=== PATIENT | female | born 1985 | race Caucasian/White ===

== ENCOUNTER → 2019-02-10 | Outpatient (CLI) | payer OTHER ==
--- NOTE | 2019-02-11 08:53 | MRI ---
MRI left knee without contrast INDICATION: Knee pain patellar dislocation date of onset not specified TECHNIQUE: Noncontrast MR imaging left knee standard protocol FINDINGS: Moderate persistent lateral patellar tracking/subluxation. Subchondral edema related to overlying chondrosis/impaction medial patella. Mild edema lateral margin lateral femoral condyle likely related to subacute lateral patellar dislocation Advanced grade 4 chondrosis throughout the lateral patellar facet with subchondral edema and cystic change. Marginal mild chondrosis lateral margin trochlea. Up to grade 4 chondrosis medial trochlea. Ill-defined grade 4 chondrosis with partial delamination medial patellar facet. Large joint effusion with synovitis/debris. No sadie rupture of the retinaculum. Extensor tendons are intact. Mild prepatellar and superficial infrapatellar bursal edema. Cruciate ligaments are intact. No discrete meniscal tear. Collateral ligaments are intact. 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
== END ==
LOC: MRI 14:00
PROVIDERS: ATTEND Orthopaedic Surgery
DX: S83.005A Unspecified dislocation of left patella, initial encounter (principal); M65.862 Other synovitis and tenosynovitis, left lower leg; M22.3X2 Other derangements of patella, left knee

== ENCOUNTER 2020-09-16 08:19 | Emergency (ER) | payer MEDICAID, OTHER ==
[2020-09-16] MEDS ORDERED: ONDANSETRON INJ 4 MG/2 ML VIAL IV ONE (08:39)
[2020-09-16] MEDS ORDERED: fentaNYL CITRATE INJ 50 MCG/ML 2 ML AMP IV ONE (08:39)
--- NOTE | 2020-09-16 08:42 | ED.PDOC ---
History of Present Illness - General Chief Complaint: Abdominal Pain Stated Complaint: L sided abd pain, L flank/back pain Time Seen by Provider: 09/16/20 08:28 - History of Present Illness Initial Comments: 35-year-old female with history of gestational hypertension presents to ED complaining of acute onset of left upper quadrant abdominal pain with associated radiation to the left CVA/flank, and nausea without vomiting. Denies history of similar symptoms or urolithiasis. Denies alleviating/aggravating factors. Denies chest pain, shortness of breath, vomiting, diarrhea, constipation, dysuria, urinary frequency or urgency, vaginal discharge or bleeding, fever/chills. Denies chance of due to bilateral tubal ligation. Patient is otherwise healthy with no other signs, symptoms, complaints. Review of Systems - Review of Systems Constitutional: Denies: chills, fever EENTM: Denies: nose congestion, throat pain Respiratory: Denies: cough, short of breath Cardiology: Denies: chest pain, edema Gastrointestinal/Abdominal: States: abdominal pain, nausea. Denies: constipation, diarrhea, vomiting Genitourinary: States: other - no urgency. Denies: dysuria, frequency Musculoskeletal: States: back pain - left CVA. Denies: muscle pain Skin: Denies: change in color, rash Neurological: States: other - no dizziness. Denies: headache Hematologic/Lymphatic: Denies: easy bruising Past Medical History (General) - Patient Medical History Hx Stroke: No Hx of COPD: No Hx Cardiac Disorders: No Hx Hypertension: No Hx Diabetes: No Surgical History: other - Vaccination History Hx Influenza Vaccination: No Hx Pneumococcal Vaccination: No - Social History Hx Tobacco Use: No Hx Alcohol Use: Yes Hx Substance Use: No Hx Substance Use Treatment: No Hx Depression: No - Female History Patient is a Female of Child Bearing Age (10 -59 yrs old): Yes Patient : No - Denies Family Medical History - Family History Mother Hx Family Hypertension: Yes Hx Family Stroke: Yes Physical Exam - Physical Exam General Appearance: Alert, Other - Non-toxic, elevated BMI, mild distress Eyes, Ears, Nose, Throat Exam: normal ENT inspection Neck: full range of motion, supple Respiratory: lungs clear, normal breath sounds, no respiratory distress, no accessory muscle use Cardiovascular/Chest: regular rate, rhythm, no edema, no JVD, no murmur Gastrointestinal/Abdominal: normal bowel sounds, soft, other - LUQ TTP with left CVAT, no rebound, no guarding, no peritoneal signs, - Rovsings, - Hayden, - McBurney Pelvic Exam: other - deferred Back Exam: CVA tenderness (L) Extremity: normal inspection, no pedal edema Neurologic: alert, normal mood/affect, oriented x 3 Skin Exam: normal color, warm/dry, other - no rash Special Observations: Other - laying still in bed Progress - Progress Progress: Major Corea DO Emergency Medicine Physician [id number] Appropriate PPE of surgical mask, gown, gloves, and eye protection (if encounter >5 minutes) utilized with every patient encounter; in accordance with hospital policy. Presents for diverticulitis vs urolithiasis vs gastritis vs pancreatitis. I will perform imaging, labs, provide appropriate pharmacotherapy, and continue to monitor/reassess. Dispo will depend on imaging and lab results and overall course in ED; however, discharge home is expected with f/u, education, and poss ible rx. 10:46 Rechecked pt. NAD, VSS, resting comfortably in bed and is feeling much better. I have discussed radiology results, lab results, my clinical impression, and diagnosis. I have also discussed plan for discharge home with f/u, education, and prescription medications. ED return precautions provided. Pt voices understanding, agrees with plan, and all questions answered. - Results/Orders Results/Orders: 09/16/20 08:40 Hold Metformin x 48Hrs [id number] Laboratory Results - last 24 hr 09/16/20 09/16/20 09/16/20 08:48 08:48 08:48 WBC 6.5 RBC 4.59 Hgb 13.9 Hct 40.4 MCV 88.0 MCH 30.2 MCHC 34.3 RDW 13.4 Plt Count 196 MPV 8.2 Absolute Neuts (auto) 4.50 Absolute Lymphs (auto) 1.40 Absolute Monos (auto) 0.50 Absolute Eos (auto) 0.10 Absolute Basos (auto) 0.00 Neutrophils % 69.0 Lymphocytes % 22.1 Monocytes % 7.1 Eosinophils % 1.2 Basophils % 0.6 Sodium 135 Potassium 4.2 Chloride 101 Carbon Dioxide 24 Anion Gap 14.2 BUN 17 Creatinine 0.58 L BUN/Creatinine Ratio 29.3 H Random Glucose 95 Serum Osmolality 271.4 L Calcium 9.1 Total Bilirubin 0.5 AST 15 ALT 14 Alkaline Phosphatase 64 Serum Total Protein 7.5 Albumin 4.3 Globulin 3.2 Albumin/Globulin Ratio 1.3 Lipase 25 Serum HCG, Qual Negative Urine Color Urine Appearance Urine pH Ur Specific [place] Urine Protein Urine Glucose (UA) Urine Ketones Urine Blood Urine Nitrite Urine Bilirubin Urine Urobilinogen Ur Leukocyte Esterase Urine RBC Urine WBC Ur Epithelial Cells Amorphous Sediment Urine Bacteria Urine Mucus 09/16/20 09:03 WBC RBC Hgb Hct MCV MCH MCHC RDW Plt Count MPV Absolute Neuts (auto) Absolute Lymphs (auto) Absolute Monos (auto) Absolute Eos (auto) Absolute Basos (auto) Neutrophils % Lymphocytes % Monocytes % Eosinophils % Basophils % Sodium Potassium Chloride Carbon Dioxide Anion Gap BUN Creatinine BUN/Creatinine Ratio Random Glucose Serum Osmolality Calcium Total Bilirubin AST ALT Alkaline Phosphatase Serum Total Protein Albumin Globulin Albumin/Globulin Ratio Lipase Serum HCG, Qual Urine Color Yellow Urine Appearance Clear Urine pH 7.5 Ur Specific [place] 1.020 Urine Protein Negative Urine Glucose (UA) Negative Urine Ketones Negative Urine Blood Negative Urine Nitrite Negative Urine Bilirubin Negative Urine Urobilinogen 0.2 Ur Leukocyte Esterase Negative Urine RBC 0 Urine WBC 0 Ur Epithelial Cells 1-3 Amorphous Sediment Trace Urine Bacteria Rare Urine Mucus Trace EXAM: Abdomen/Pelvis w/Contrast INDICATION: LUQ abd pain . COMPARISON: None available TECHNIQUE: CT of the abdomen and pelvis was performed following the administration of IV contrast. Multiple axial images and multiplanar reconstructions were generated. This exam was performed according to our departmental dose-optimization program, which includes automated exposure control, adjustment of the mA and/or kV according to patient size and/or use of iterative reconstruction technique. FINDINGS: Visualized chest: Incidental 3 mm subpleural pulmonary nodule in the right middle lobe (axial series 2 image 5). No routine follow-up imaging is recommended. (Radiology. 2017 August; 284(1):228-243). Heart size is within normal limits. Liver: Focal fatty infiltration at the falciform ligament. Otherwise unremarkable appearance of the liver. Gallbladder: Cholelithiasis. The gallbladder is moderately distended. Pancreas: Unremarkable appearance of the pancreas. Spleen: Unremarkable appearance of the spleen. Adrenal glands: Unremarkable appearance of the adrenal glands. Kidneys, ureters, bladder: No striated nephrograms or hydronephrosis. Bilateral nonobstructing renal stones in the lower poles of both kidneys. No obstructing renal stones are identified. Unremarkable appearance of the visualized portions of the ureters. Unremarkable appearance of the urinary bladder. Stomach and bowel: Unremarkable appearance of the stomach. No dilated loops of small bowel. There is some very subtle hazy pericolonic fat stranding at the junction of the descending and sigmoid colon, associated with multiple diverticula. The appendix is not identified although there are no focal inflammatory changes in the right lower quadrant to suggest appendicitis. Uterus and adnexa: Unremarkable appearance of the uterus. Note is made that the left ovary is immediately adjacent to the segment of colon that demonstrates subtle surrounding inflammatory stranding. No adnexal masses are identified. Peritoneum: No free fluid. No pneumoperitoneum. Lymph nodes: No lymphadenopat hy. Vasculature: Unremarkable appearance of the visualized major vascular structures. Bones: No acute fracture. No destructive osseous lesion. Body wall: Small 2 cm fat-containing umbilical hernia with associated hazy inflammatory fat stranding. IMPRESSION: 1. Gallstones and moderate distention of the gallbladder. If there are symptoms focal to the right upper quadrant, consider further evaluation with ultrasound. 2. Subtle hazy pericolonic inflammatory fat stranding at the junction of the descending and sigmoid colon with multiple diverticula. Findings are suspicious for mild diverticulitis. Note is made that the left ovary is immediately adjacent to this segment of colon, but is otherwise itself unremarkable. 3. Bilateral nonobstructing renal stones. 4. 2 cm fat-containing umbilical hernia demonstrates mild associated inflammatory change. Electronically signed by: Henny Montoya MD 09/16/2020 10:37 AM [employer] Vital Signs - 24 hr 09/16/20 09/16/20 09/16/20 08:20 08:33 09:00 Temperature 98.6 F Pulse Rate [ 72 72 67 Pulse ox] Respiratory 16 16 16 Rate Blood Pressure 172/108 167/102 [L arm] O2 Sat by Pulse 97 96 Oximetry 09/16/20 10:00 Temperature Pulse Rate [ 61 Pulse ox] Respiratory 18 Rate Blood Pressure 146/93 [L arm] O2 Sat by Pulse 97 Oximetry Departure - Departure Clinical Impression: Diverticulitis, Elevated blood pressure reading without diagnosis of hypertension Cholelithiasis Qualifiers: Cholelithiasis location: gallbladder Cholecystitis presence: without cholecystitis Biliary obstruction: without biliary obstruction Qualified Code(s): K80.20 - Calculus of gallbladder without cholecystitis without obstruction Umbilical hernia Qualifiers: Obstruction and gangrene presence: without obstruction or gangrene Qualified Code(s): K42.9 - Umbilical hernia without obstruction or gangrene Time of Disposition: 10:46 Disposition: Discharge to Home or Self Care Condition: Excellent Departure Forms: ED Discharge - Pt. Copy, Patient Portal Self Enrollment Instructions: DI for Abdominal Pain-Adult, Diverticulitis (DC), High Fiber Diet, Umbilical Hernia, Adult, Gallstones (DC) Diet: other - High fiber diet with increased water intake Referrals: Mitch Richey MD [Primary Care Provider] - 1-5 Days Prescriptions: Amoxicillin & Pot Clavulanate [Augmentin Tab] 875 mg PO BID 10 Days #20 tab Ondansetron Tab [Zofran Tab] 4 mg PO TID PRN #12 tab PRN Reason: Nausea/Vomiting Home Medications: Ambulatory Orders Amoxicillin & Pot Clavulanate [Augmentin Tab] 875 mg PO BID 10 Days #20 tab 09/16/20 Ondansetron Tab [Zofran Tab] 4 mg PO TID PRN #12 tab 09/16/20
--- NOTE | 2020-09-16 10:38 | CT ---
EXAM: Abdomen/Pelvis w/Contrast INDICATION: LUQ abd pain . COMPARISON: None available TECHNIQUE: CT of the abdomen and pelvis was performed following the administration of IV contrast. Multiple axial images and multiplanar reconstructions were generated. This exam was performed according to our departmental dose-optimization program, which includes automated exposure control, adjustment of the mA and/or kV according to patient size and/or use of iterative reconstruction technique. FINDINGS: Visualized chest: Incidental 3 mm subpleural pulmonary nodule in the right middle lobe (axial series 2 image 5). No routine follow-up imaging is recommended. (Radiology. 2017 Feb; 284(1):228-243). Heart size is within normal limits. Liver: Focal fatty infiltration at the falciform ligament. Otherwise unremarkable appearance of the liver. Gallbladder: Cholelithiasis. The gallbladder is moderately distended. Pancreas: Unremarkable appearance of the pancreas. Spleen: Unremarkable appearance of the spleen. Adrenal glands: Unremarkable appearance of the adrenal glands. Kidneys, ureters, bladder: No striated nephrograms or hydronephrosis. Bilateral nonobstructing renal stones in the lower poles of both kidneys. No obstructing renal stones are identified. Unremarkable appearance of the visualized portions of the ureters. Unremarkable appearance of the urinary bladder. Stomach and bowel: Unremarkable appearance of the stomach. No dilated loops of small bowel. There is some very subtle hazy pericolonic fat stranding at the junction of the descending and sigmoid colon, associated with multiple diverticula. The appendix is not identified although there are no focal inflammatory changes in the right lower quadrant to suggest appendicitis. Uterus and adnexa: Unremarkable appearance of the uterus. Note is made that the left ovary is immediately adjacent to the segment of colon that demonstrates subtle surrounding inflammatory stranding. No adnexal masses are identified. Peritoneum: No free fluid. No pneumoperitoneum. Lymph nodes: No lymphadenopathy. Vasculature: Unremarkable appearance of the visualized major vascular structures. Bones: No acute fracture. No destructive osseous lesion. Body wall: Small 2 cm fat-containing umbilical hernia with associated hazy inflammatory fat stranding. IMPRESSION: 1. Gallstones and moderate distention of the gallbladder. If there are symptoms focal to the right upper quadrant, consider further evaluation with ultrasound. 2. Subtle hazy pericolonic inflammatory fat stranding at the junction of the descending and sigmoid colon with multiple diverticula. Findings are suspicious for mild diverticulitis. Note is made that the left ovary is immediately adjacent to this segment of colon, but is otherwise itself unremarkable. 3. Bilateral nonobstructing renal stones. 4. 2 cm fat-containing umbilical hernia demonstrates mild associated inflammatory change. Electronically signed by: Henny Montoya MD 09/16/2020 10:37 AM [facility]
[2020-09-16 11:15] VITALS: BP 141/87; TEMP 98.2; O2SAT 98
== END 2020-09-16 11:15 | disposition home or self-care (01) ==
LOC: ER 08:19
DX: K57.32 Diverticulitis of large intestine without perforation or abscess without bleeding (principal); R03.0 Elevated blood-pressure reading, without diagnosis of hypertension; K80.20 Calculus of gallbladder without cholecystitis without obstruction; K42.9 Umbilical hernia without obstruction or gangrene; R11.2 Nausea with vomiting, unspecified; N20.0 Calculus of kidney
CPT/HCPCS: 36415; 74177; 80053; 81001; 83690; 84703; 85025; J2405; J3010